=== PATIENT | male | born 1985 | race Caucasian/White ===

== ENCOUNTER 2023-06-10 04:50 | Day surgery (SDC) | payer OTHER ==
[2023-06-06 13:16] VITALS: BMI 29.7
[2023-06-10] MEDS ORDERED: DEXTROSE 5%-0.45% SALINE 1,000 ML IV SCH (07:45)
[2023-06-10] MEDS ORDERED: FENTANYL CITRATE/PF 50 MCG/ML VIAL ONE ×2 (07:58→09:01)
[2023-06-10] MEDS ORDERED: MIDAZOLAM HCL 2 MG/2 ML SINGLE DOSE VIAL ONE (07:58)
[2023-06-10] MEDS ORDERED: PROPOFOL 20 ML ONE (08:14)
[2023-06-10] MEDS ORDERED: oxyCODONE HCL 5 MG TABLET PO PRN (08:21)
[2023-06-10] MEDS ORDERED: ONDANSETRON 4 MG/2 ML VIAL IVPUSH PRN (08:21)
[2023-06-10] MEDS ORDERED: ACETAMINOPHEN 1000 MG/100 ML BAG IVPB ONE (08:22)
[2023-06-10] MEDS: ceFAZolin SODIUM 1 GM VIAL IVPB ONE (08:48)
[2023-06-10] MEDS ORDERED: ceFAZolin SODIUM 1 GM VIAL ONE (09:00)
[2023-06-10] MEDS ORDERED: KETOROLAC TROMETHAMINE 30 MG/1 ML VIAL ONE (09:00)
[2023-06-10] MEDS ORDERED: DEXAMETHASONE SOD PHOSPHATE 4 MG/1 ML VIAL ONE (09:00)
[2023-06-10] MEDS: ACETAMINOPHEN 1000 MG/100 ML BAG IVPB ONE (09:40)
[2023-06-10] MEDS: LACTATED RINGERS SOLUTION 1,000 ML IV SCH (10:30)
[2023-06-10 11:02] VITALS: PULSE 66; RESP 18
[2023-06-10 12:04] VITALS: BP 129/67; TEMP 98.4
== END 2023-06-10 12:00 | disposition home or self-care (01) ==
LOC: JASU-SURG 04:50
PROVIDERS: ATTEND Urology
PROC: 0TC78ZZ Extirpation of Matter from Left Ureter, Via Natural or Artificial Opening Endoscopic (ICD-10-PCS; principal; 2023-06-10 08:30)
PROC: 0T778DZ Dilation of Left Ureter with Intraluminal Device, Via Natural or Artificial Opening Endoscopic (ICD-10-PCS; 2023-06-10 08:30)
DX: N20.1 Calculus of ureter (principal)
CPT/HCPCS: 76000-TC-FY; 94760; C1758; C1769; C2617; J0131